=== PATIENT | female | born 1995 ===

== ENCOUNTER 2016-08-26 13:30 | Emergency (ER) | payer OTHER ==
[~2016-08-26] VITALS: Ht 162.6 cm; Wt 110.7 kg
[2016-08-26 13:34] VITALS: BP 103/65
--- NOTE | 2016-08-26 13:53 | ED GI/GU/ABDOMINAL COMPLAINT ---
History of Present Illness General Chief Complaint: Nausea, Vomiting, Diarrhea Stated Complaint: SKIN RASH NVD Source: patient, old records Exam Limitations: no limitations Vital Signs & Intake/Output Vital Signs & Intake/Output Vital Signs Date Time Temp Pulse Resp B/P Pulse O2 O2 Flow FiO2 Ox Delivery Rate 08/26 1334 97.1 93 20 103/65 97 Room Air Allergies Coded Allergies: No Known Allergies (08/26/16) Reconcile Medications Loperamide HCl (Imodium A-D) 2 MG CAPSULE 1 TAB PO BID PRN DIARRHEA Methylprednisolone. (Medrol) 4 MG TAB.DS.PK 1 DP PO AD DERMATITIS 6 on day 1 then reduce by one tablet daily until gone Ondansetron (Zofran Odt) 4 MG TAB.RAPDIS 1 TAB SL TID PRN NAUSEA Triage Note: PT C/O ITCHY RASH ON FACE AND ABDOMEN. PT STATES SHE HAS BEEN UP SINCE 0400 WITH N/V/D AND ABDOMINAL PAIN Triage Nurses Notes Reviewed? yes ? n Is pt currently ? No Onset: Abrupt Duration: hour(s): (10), better, constant Timing: recent history Quality/Severity: cramping Severity Numbers: 3 Location: generalized abdomen Radiation: no radiation Activities at Onset: none Prior Abdominal Problems: none No Modifying Factors: none Associated Symptoms: denies HPI: This is a 21-year-old female who presents to emergency room with 2 sons for evaluation stating that she's been up since 4 AM this morning with multiple episodes of nausea vomiting and diarrhea associated with crampy nonradiating generalized abdominal pain mild in nature that comes on with the diarrhea and vomiting. She denies any black or bloody stools, no hematemesis. She denies fevers chills. No chest pain or shortness of breath no urinary symptoms. She has a history of a tubal ligation, no urinary symptoms no vaginal bleeding or discharge she denies chance of . Patient states that her sons had these similar symptoms for the past 2 days. She's been tolerating by mouth today she has not taken anything for her symptoms She is also complaining of a pruritic dry rash to her arms and face that she states she's had for the past 4 weeks. She is not sought care for the symptoms until today, no new soaps or detergents. She states that she noticed her son who is currently being seen here for similar symptoms develop the rash yesterday to be checked for that as well. Past History Travel History Traveled to [place] past 21 day No Medical History Any Pertinent Medical History? none Surgical History Surgical History: non-contributory Psychosocial History What is your primary language Marshallese Tobacco Use: Current Daily Use Daily Tobacco Use Amount/Type: => 5 Cigarettes daily ETOH Use: occasional use Illicit Drug Use: denies illicit drug use Family History Hx Contributory? No Review of Systems Review of Systems Constitutional: Reports: see HPI. All Other Systems: Reviewed and Negative Comments Review of systems: See HPI, All other systems negative. Constitutional, no chills no fever, no malaise HEENT: No visual changes no sore throat no congestion, no ear pain Cardiovascular: No chest pain , no palpitation Skin, no rashes, no change in skin Respiratory: No dyspnea no cough no sputum GI: nausea vomiting,diarrhea, no bloating/constipation : No dysuria No hematuria, no frequency, no discharge Muscle skeletal: No joint pain, no joint swelling, no back pain, no neck pain, Neurologic: no headache Psych: No stress Heme/endocrine: No bruising no bleeding Immunology: No lymphadenopathy Physical Exam Physical Exam General Appearance: well developed/nourished, alert, awake Gastrointestinal: normal bowel sounds, soft, non-tender Comments: Well-developed well-nourished person in no acute distress HEENT: Normal EENT exam; PERRL, EOMI,HEAD is atraumatic. moist mucous membranes. Neck: Supple, normal range of motion Back: Nontender, no CVA tenderness. Full range of motion Cardiovascular: Regular rate and rhythms no murmurs rubs Respiratory: No respiratory distress. Patient speaking in full complete sentences. Breath sounds clear to auscultation bilaterally: NO W/R/R Abdomen: Soft, nontender nondistended, no appreciable organomegaly. Normal bowel sounds. No rebound/guarding, Extremity: No edema, full range of motion of extremities Neuro: Alert oriented x3, motor sensory normal, There were no obvious focal neurologic abnormalities. Skin: , there is a dry scaly rash noted to bilateral arms and face, skin is warm and dry. No jaundice no diaphoresis Psych: Mood and affect is normal, memory and judgment is normal. Core Measures ACS in differential dx? No Severe Sepsis Present: No Septic Shock Present: No Progress Differential Diagnosis: appendicitis, biliary colic, colon cancer, cholecystitis , diverticulitis, ectopic , gastritis, ischemic bowel, inflamm bowel dis, intrauterine , pancreatitis, PID/cervicitis, peptic ulcer, PUD/ GERD, perforated viscous, SBO, threatened AB, cellulitis, psoriasis, pediculosis , tinea, dermatitis Plan of Care: She clinically appears well tolerating by mouth challenge here without any vomiting diarrhea abdomen is soft nontender given multiple sick contacts with similar symptoms most likely viral in etiology advise supportive care bland diet clear liquids Zofran for nausea. Patient is requesting prescription for Imodium , I advised return anytime sooner for symptoms worsened, or she has any other concerns answered all of her questions she feels comfortable this plan Initial ED EKG: none Departure Departure Time of Disposition: 1422 Disposition: HOME OR SELF CARE Condition: Stable Clinical Impression Primary Impression: Nausea vomiting and diarrhea Secondary Impressions: Dermatitis Referrals: PATIENT HAS NO PRIMARY CARE DR (PCP/Family) Additional Instructions: Follow-up with your primary care physician on Sunday. Prednisone as discussed for your rash, Zofran if needed for nausea and Imodium for diarrhea drink plenty of fluids bland diet advance diet as tolerated, return to emergency room anytime sooner with any concerns These were sent to [facility] in [place]. Departure Forms: Customer Survey General Discharge Information Prescriptions: Current Visit Scripts Loperamide HCl (Imodium A-D) 1 TAB PO BID PRN DIARRHEA #10 TAB Ondansetron (Zofran Odt) 1 TAB SL TID PRN NAUSEA #10 TAB Methylprednisolone. (Medrol) 1 DP PO AD #1 DP 6 on day 1 then reduce by one tablet daily until gone
[2016-08-26] MEDS ORDERED: IMODIUM A-D2 M2 PO (14:25)
[2016-08-26] MEDS ORDERED: ZOFRAN ODT4 M1 SL (14:25)
[2016-08-26] MEDS ORDERED: MEDROL4 M2 PO (14:25)
== END 2016-08-26 14:41 ==
LOC: ERH 13:30
DX: R11.2 Nausea with vomiting, unspecified (principal); R19.7 Diarrhea, unspecified; L30.9 Dermatitis, unspecified

== ENCOUNTER 2016-10-19 11:34 | Emergency (ER) | payer OTHER ==
[~2016-10-19] VITALS: Ht 162.6 cm; Wt 113.9 kg
[~2016-10-19 11:34] MED LIST: IMODIUM A-D2 M2 PO; MEDROL4 M2 PO; ZOFRAN ODT4 M1 SL
--- NOTE | 2016-10-19 11:49 | ED GENERAL ADULT ---
History of Present Illness General Chief Complaint: General Adult Stated Complaint: SKIN RASH, VAGINAL IRRITATION Source: patient Exam Limitations: no limitations Vital Signs & Intake/Output Vital Signs & Intake/Output Vital Signs Date Time Temp Pulse Resp B/P Pulse O2 O2 Flow FiO2 Ox Delivery Rate 10/19 1416 97.6 80 20 120/80 98 Room Air 10/19 1202 126/85 10/19 1138 97.4 83 18 98 Room Air Allergies Coded Allergies: No Known Allergies (08/26/16) Reconcile Medications Fluconazole (Diflucan) 150 MG TABLET 1 TAB PO ONCE VAGINITIS REPEAT IN 7 DAYS Fluconazole (Diflucan) 150 MG TABLET 1 TAB PO ONCE VAGINITIS REPEAT IN 7 DAYS Loperamide HCl (Imodium A-D) 2 MG CAPSULE 1 TAB PO BID PRN DIARRHEA Methylprednisolone. (Medrol) 4 MG TAB.DS.PK 1 DP PO AD DERMATITIS 6 on day 1 then reduce by one tablet daily until gone Ondansetron (Zofran Odt) 4 MG TAB.RAPDIS 1 TAB SL TID PRN NAUSEA Triage Note: 21 Y/O FEMALE C/O VAGINAL "ITCHING"/IRRITATION; ALSO C/O "OUTBREAK" OF SMALL BUMPS TO FACE, CHEST AND ARMS SINCE JUL. SMALL RAISED AREAS NOTED. Triage Nurses Notes Reviewed? yes Onset: Abrupt Duration: day(s): Timing: recent history : No Patient currently breastfeeds: No HPI: 10/19/16 This is a 21-year-old female who presents to the emergency department for rash. The patient claims that she's also had vaginal itching and whitish discharge over the past 48 hours. But she also has a generalized rashes which she's had for almost a year. She was given prednisone with no response. She denies abdominal pain or other complaints; she denies any possibility of . The onset of the symptoms have been abrupt, the duration has been days - the vaginal itching goes and months as far as a generalized rash goes. The severity is significant; as her symptoms required her to come to the emergency department for care. Abdomen is soft and nontender, she does have, no cervical motion tenderness, she does have whitish vaginal discharge consistent with the yeast vaginitis. She also has a generalized rash with erythematous circular peripherally and pale centers. This is consistent with tinea corporis, a baseline liver profile was ordered, she was treated with Diflucan. When this is completed, she will follow up with [facility] who can then start prolonged antifungal therapy for the tinea corporis, likely Lamisil. Past History Travel History Traveled to [place] past 21 day No Medical History Any Pertinent Medical History? see below for history Neurological: NONE EENT: NONE Cardiovascular: NONE Respiratory: NONE Gastrointestinal: NONE Hepatic: NONE Renal: NONE Musculoskeletal: NONE Psychiatric: NONE Endocrine: NONE Blood Disorders: NONE Cancer(s): NONE [employer]/Reproductive: NONE Surgical History Surgical History: non-contributory Psychosocial History What is your primary language Burmese Tobacco Use: Current Daily Use Daily Tobacco Use Amount/Type: => 5 Cigarettes daily Family History Hx Contributory? No Review of Systems Review of Systems Constitutional: Denies: fever. EENTM: Reports: no symptoms. Respiratory: Reports: no symptoms. Cardiovascular: Reports: no symptoms. GI: Reports: no symptoms. Genitourinary: Reports: no symptoms. Musculoskeletal: Reports: no symptoms. Skin: Reports: see HPI. Neurological/Psychological: Reports: no symptoms. Hematologic/Endocrine: Reports: no symptoms. Immunologic/Allergic: Reports: no symptoms. Physical Exam Physical Exam General Appearance: well developed/nourished, alert, awake, anxious, mild distress Head: atraumatic, normal appearance Eyes: Bilateral: normal appearance, PERRL, EOMI. Ears, Nose, Throat: normal pharynx, normal ENT inspection Neck: normal inspection, supple, full range of motion Respiratory: normal breath sounds, chest non-tender, no respiratory distress Cardiovascular: regular rate/rhythm Peripheral Pulses: 4+ radial (R), 4+ radial (L) Gastrointestinal: soft, non-tender Back: normal range of motion Extremities: no edema Neurologic/Psych: no motor/sensory deficits, awake, alert, oriented x 3 Skin: rash Comments: Pelvic exam reveals no CMT, whitish discharge Core Measures ACS in differential dx? No CVA/TIA Diagnosis: No Severe Sepsis Present: No Septic Shock Present: No Progress Differential Diagnoses I considered the following diagnoses in my evaluation of the patient: Tinea corporis, syphilis, vaginitis, cervicitis] Plan of Care: Orders Procedure Date/time Status COMPREHENSIVE METABOLIC PANEL 10/19 1319 Complete TRICHOMONAS 10/19 1234 Complete POTASSIUM HYDROXIDE (LUIS ANGEL) 10/19 1234 Complete GENITAL CULTURE 10/19 1234 Active CHLAMYDIA-GC DNA PROBE 10/19 1234 Active URINE 10/19 1234 Complete Laboratory Tests 10/19/16 1329: Anion Gap 13, Estimated GFR > 60, BUN/Creatinine Ratio 14.3, Glucose 71, Calcium 9.6, Total Bilirubin 0.4, AST 16, ALT 33, Alkaline Phosphatase 55, Total Protein 7.8, Albumin 4.4, Globulin 3.4, Albumin/Globulin Ratio 1.3 10/19/16 1250: Urine Test NEGATIVE Microbiology 10/19 132 GENITAL: GC DNA Probe - RECD 10/20 1319 GENITAL: Chlamydia DNA Probe (MARIA EUGENIA) - RECD 10/20 1319 GENITAL: LUIS ANGEL Preparation - COMP YEAST 10/20 1319 GENITAL: Trichomonas Preparation - COMP 10/20 1319 GENITAL: Genital Culture - RECD Initial ED EKG: none Departure Departure Disposition: HOME OR SELF CARE Condition: Stable Clinical Impression Primary Impression: Anjali vaginitis Secondary Impressions: Tinea corporis Referrals: PATIENT HAS NO PRIMARY CARE DR (PCP/Family) Departure Forms: Customer Survey General Discharge Information Prescriptions: Current Visit Scripts Fluconazole (Diflucan) 1 TAB PO ONCE #2 TAB REPEAT IN 7 DAYS Fluconazole (Diflucan) 1 TAB PO ONCE #2 TAB REPEAT IN 7 DAYS Critical Care Note Critical Care Note Critical Care Time: non-applicable
[2016-10-19] MEDS ORDERED: DIFLUCAN150 M1 PO ×2 (14:01→14:03)
[2016-10-19 14:16] VITALS: BP 120/80
[2016-12-29] MEDS ORDERED: PROAIR HFA8.5 GM INH (00:44)
== END 2016-10-19 14:16 ==
LOC: ERH 11:34
DX: B37.3 Candidiasis of vulva and vagina (principal); B35.4 Tinea corporis
CPT/HCPCS: 87070; 81025; 87071; 87491; 87591